=== PATIENT | male | born 1960 | race Caucasian/White ===

== ENCOUNTER 2016-09-03 11:20 | Inpatient (IN) | payer OTHER ==
[2016-09-03] MEDS ORDERED: ACETAMINOPHEN 325 MG TABLET (FP) PO ONE (11:29)
[2016-09-03] MEDS ORDERED: SODIUM CHLORIDE 0.9% 1000 ML INFUS.BAG IV PRN (11:50)
--- NOTE | 2016-09-03 11:50 | PDOC ---
History of Present Illness - General History Source: Patient Exam Limitations: No Limitations - History of Present Illness Initial Comments: 09/03/16 12:07 The patient is a 56-year-old male, with a significant past medical history of HTN and DM, who presents to the ER with right-sided flank pain and bladder pain s/p prostate surgery 2 days ago. Pt states that he has not been able to urinate much since the surgery. He does report having a fever and hematuria; in ER patients temperature was measured to be 103 and he was given a dose of Tylenol. Pt has been taking the antibiotics he was prescribed with no relief of his symptoms (does not recall the name). Urologist: Dr. Otf Westfall <Brook Chaudhry - Last Filed: 09/03/16 12:07> <Farrah De Jesus - Last Filed: 09/03/16 16:55> - General Chief Complaint: SIRS, Suspected/Possible Stated Complaint: FEVER Time Seen by Provider: 09/03/16 11:30 Past History <Brook Chaudhry - Last Filed: 09/03/16 12:07> - Past Medical History Diabetes: Yes HTN: Yes - Psycho/Social/Smoking Cessation Hx Suicidal Ideation: No Smoking History: Never smoked Hx Alcohol Use: No Drug/Substance Use Hx: No Substance Use Type: None <Farrah De Jesus - Last Filed: 09/03/16 16:55> - Past Medical History Allergies/Adverse Reactions: Allergies Allergy/AdvReac Type Severity Reaction Status Date / Time No Known Drug Allergies Allergy Verified 09/03/16 11:27 Home Medications: Ambulatory Orders Aspirin [ASA -] 81 mg PO DAILY 09/03/16 Glimepiride [Amaryl -] 4 mg PO DAILY@0700 09/03/16 Lisinopril [Prinivil] 20 mg PO DAILY 09/03/16 Metronidazole [Flagyl -] 250 mg PO BID 09/03/16 Sulfamethoxazole/Trimethoprim [Bactrim Ds Tablet] 1 each PO DAILY 09/03/16 Review of Systems - Review of Systems Comments:: 09/03/16 12:07 GENERAL/CONSTITUTIONAL: No chills. No weakness. +fever HEAD, EYES, EARS, NOSE AND THROAT: No change in vision. No ear pain or discharge. No sore throat. CARDIOVASCULAR: No chest pain or shortness of breath. RESPIRATORY: No cough, wheezing, or hemoptysis. SKIN: No rash GASTROINTESTINAL: No nausea, vomiting, diarrhea or constipation. GENITOURINARY: +hematuria, urinary retention, bladder pain MUSCULOSKELETAL: No joint swelling or pain. No neck pain. +right-sided flank pain NEUROLOGIC: No headache, vertigo, loss of consciousness, or change in strength/ sensation. ENDOCRINE: No increased thirst. No abnormal weight change. HEMATOLOGIC/LYMPHATIC: No anemia, easy bleeding, or history of blood clots. ALLERGIC/IMMUNOLOGIC: No hives or skin allergy. <Brook Chaudhry - Last Filed: 09/03/16 12:07> *Physical Exam - Vital Signs Last Vital Signs Temp Pulse Resp BP Pulse Ox 103.2 F H 147 H 20 151/80 96 09/03/16 11:21 09/03/16 11:21 09/03/16 11:21 09/03/16 11:21 09/03/16 11:21 - Physical Exam Comments: 09/03/16 12:10 GENERAL: Awake, alert, and fully oriented, in no acute distress HEAD: No signs of trauma ENT: Auricles normal inspection, hearing grossly normal, nares patent, oropharynx clear EYES: PERRLA, EOMI, sclera anicteric, conjunctiva clear without exudates. Moist mucosa. NECK: Normal ROM, supple, no lymphadenopathy, JVD, or masses LUNGS: Breath sounds equal, clear to auscultation bilaterally. No wheezes, and no crackles HEART: normal S1 and S2, no murmurs, rubs or gallops. +Regular Tachycardia ABDOMEN: Soft, normoactive bowel sounds. No guarding, no rebound. No masses. + Suprapubic tenderness and right CVA tenderness EXTREMITIES: Normal range of motion, no edema. No clubbing or cyanosis. No cords, erythema, or tenderness NEUROLOGICAL: Cranial nerves II through XII grossly intact. Normal speech, normal gait SKIN: Warm, Dry, normal turgor, no rashes or lesions noted <Brook Chaudhry - Last Filed: 09/03/16 12:07> - Vital Signs Last Vital Signs Temp Pulse Resp BP Pulse Ox 103.2 F H 147 H 20 151/80 96 09/03/16 11:21 09/03/16 11:21 09/03/16 11:21 09/03/16 11:21 09/03/16 11:21 <Farrah De Jesus - Last Filed: 09/03/16 16:55> ED Treatment Course - Medications Given in the ED: ED Medications Discontinued Medications Generic Name Dose Route Start Last Admin Trade Name Freq PRN Reason Stop Dose Admin Acetaminophen 650 mg 09/03/16 11:29 09/03/16 11:29 Tylenol - PO 09/03/16 11:30 650 mg NOW ONE Administration <Brook Chaudhry - Last Filed: 09/03/16 12:07> - LABORATORY CBC & Chemistry Diagram: 09/03/16 11:54 09/03/16 11:54 - Medications Given in the ED: ED Medications Discontinued Medications Generic Name Dose Route Start Last Admin Trade Name Freq PRN Reason Stop Dose Admin Acetaminophen 650 mg 09/03/16 11:29 09/03/16 11:29 Tylenol - PO 09/03/16 11:30 650 mg NOW ONE Administration <Farrah De Jesus - Last Filed: 09/03/16 16:55> Medical Decision Making - Medical Decision Making 09/03/16 11:47 56 yo M with /o recent prostate surgery for BPH, 2 days ago, here today with c/ o inability to urinate, and fever. c/o flank pain and bladder pain. right sided. does have hematuria. did have fever and chills. no n/v pain moderate. urologist dr. Westfall. on exam awake alert, lungs clear. heart reg tachycardia. abd soft right cva ttp , suprapubic ttp. . skin warm and dry. differential: retention, pyelo, bacteremia. plan iv hydration pat culture lactate. will cover with ceftriaxone. d/w dr. westfall. admit. 09/03/16 16:54 rpt lactate, now 1.5 after 2 L NS. antiobtiocs given,. admitted to hospitalist. urology will see in hospital. <Farrah De Jesus - Last Filed: 09/03/16 16:55> *DC/Admit/Observation/Transfer - Attestations Scribe Attestion: 09/03/16 12:11 Documentation prepared by Brook Chaudhry, acting as medical records supervisor for Farrah De Jesus MD. <Brook Chaudhry - Last Filed: 09/03/16 12:07> - Discharge Dispostion Admit: Yes <Farrah De Jesus - Last Filed: 09/03/16 16:55> Diagnosis at time of Disposition: Sepsis - Referrals Referrals: Shelli Ortiz MD [Primary Care Provider] -
[2016-09-03 12:04] LABS: VENOUS PH 7.35 (7.32-7.42)
[2016-09-03 12:05] LABS: VENOUS BLOOD GAS HCO3 25.1 meq/L (19-25)
[2016-09-03] MEDS ORDERED: GENTAMICIN 80 MG PREMIXED IVPB 100 ML IVPB ONE (12:23)
[2016-09-03] MEDS ORDERED: CEFTRIAXONE 1 GM in DEXTROSE 5%-WATER - 50 ML IVPB ONE (12:23)
[2016-09-03 12:50] LABS: BASOPHIL 0.2 % (0-2.0); MCH 30.7 pg (25.7-33.7); MCHC 34.3 g/dl (32.0-35.9); MEAN CELL VOLUME 89.7 fl (80-96); MEAN PLT VOLUME 8.7 fl (7.5-11.1); NEUTROPHILS 86.7 % (42.8-82.8); PLATELET COUNT 136 K/MM3 (134-434); RDW 12.8 % (11.9-15.9); WHITE BLOOD COUNT 9.3 K/mm3 (4.0-10.0)
[2016-09-03] MEDS ORDERED: CEFTRIAXONE 50 ML ONE (12:52)
[2016-09-03 12:53] LABS: URINE APPEARANCE SLCLOUDY; URINE BILIRUBIN NEGATIVE (NEGATIVE); URINE COLOR YELLOW; URINE GLUCOSE (UA) 3+ (NEGATIVE); URINE KETONE NEGATIVE (NEGATIVE); URINE LEUK ESTERASE NEGATIVE (NEGATIVE); URINE NITRITE NEGATIVE (NEGATIVE); URINE UROBILINOGEN NEGATIVE E.U./dl (0.2-1.0)
[2016-09-03 13:01] LABS: URINE BLOOD 3+ (NEGATIVE); URINE PROTEIN 1+ (NEGATIVE)
[2016-09-03 13:03] LABS: INR 1.35 (0.82-1.09); PROTHROMBIN TIME (PATIENT) 14.9 SEC (9.98-11.88)
[2016-09-03 13:05] LABS: ACTIVATED PTT 26.8 SECONDS (26.9-34.4)
[2016-09-03 13:10] LABS: ALBUMIN 3.3 g/dl (3.4-5.0); ANION GAP 12 (8-16); BILIRUBIN,TOTAL 0.5 mg/dL (0.2-1.0); CALCIUM 8.7 mg/dL (8.5-10.1); CO2 25 mmol/L (21-32); CREATININE 1.6 mg/dL (0.7-1.3); GLUCOSE,RANDOM 266 mg/dL (74-106); SGOT/AST 20 U/L (15-37); SGPT/ALT 36 U/L (12-78); TOT PROT 6.8 g/dl (6.4-8.2)
[2016-09-03 13:12] LABS: ALK PHOS 81 U/L (45-117); TROPONIN I < 0.02 ng/ml (0.00-0.05)
[2016-09-03] MEDS ORDERED: SODIUM CHLORIDE 1,000 ML IV STA (16:23)
--- NOTE | 2016-09-03 16:23 | HP ---
CHIEF COMPLAINT: fever, chills and vague lower back pain x2 days PCP: Felix ALVARADO: Otf Westfall HISTORY OF PRESENT ILLNESS: This is a 56 yo man with PMH of HTN, NIDDM and BPH who presents today for fever, chills and lower back pain s/p prostate biopsy. He denies nausea, vomiting, change in appetite or urinary difficulties. He reports taking abx as prescribed by Andrea for post-procedure ppx. ER course was notable for: (1) Fever Tmax 103.2 (2) Lactic acid 4.8->1.5 after 2 liters NS (3) bilateral flank pain Recent Travel: denies PAST MEDICAL HISTORY: BPH, NIDDM, HTN PAST SURGICAL HISTORY: prostate biopsy 09/01/16 Social History: Smoking: denies Alcohol: occasional Drugs: denies Employed in high school overnight Family History: noncontributory Allergies No Known Drug Allergies Allergy (Verified 09/03/16 11:27) HOME MEDICATIONS: Home Medications 3 Medication Instructions Recorded Aspirin [ASA -] 81 mg PO DAILY 09/03/16 Glimepiride [Amaryl -] 4 mg PO DAILY@0700 09/03/16 Lisinopril [Prinivil] 20 mg PO DAILY 09/03/16 Metronidazole [Flagyl -] 250 mg PO BID 09/03/16 Sulfamethoxazole/Trimethoprim 1 each PO DAILY 09/03/16 [Bactrim Ds Tablet] REVIEW OF SYSTEMS CONSTITUTIONAL: fever, chills, diaphoresis Absent: generalized weakness, malaise, loss of appetite, weight change HEENT: Absent: rhinorrhea, nasal congestion, throat pain, throat swelling, difficulty swallowing, mouth swelling, ear pain, eye pain, visual changes CARDIOVASCULAR: Absent: chest pain, syncope, palpitations, irregular heart rate, lightheadedness , peripheral edema RESPIRATORY: Absent: cough, shortness of breath, dyspnea with exertion, orthopnea, wheezing, stridor, hemoptysis GASTROINTESTINAL: Absent: abdominal pain, abdominal distension, nausea, vomiting, diarrhea, constipation, melena, hematochezia GENITOURINARY: Absent: dysuria, frequency, urgency, hesitancy, hematuria, flank pain, genital pain MUSCULOSKELETAL: Absent: myalgia, arthralgia, joint swelling, back pain, neck pain SKIN: Absent: rash, itching, pallor HEMATOLOGIC/IMMUNOLOGIC: Absent: easy bleeding, easy bruising, lymphadenopathy, frequent infections ENDOCRINE: Absent: unexplained weight gain, unexplained weight loss, heat intolerance, cold intolerance NEUROLOGIC: Absent: headache, focal weakness or paresthesias, dizziness, unsteady gait, seizure, mental status changes, bladder or bowel incontinence PSYCHIATRIC: Absent: anxiety, depression, suicidal or homicidal ideation, hallucinations. PHYSICAL EXAMINATION Vital Signs - 24 hr 3 09/03/16 09/03/16 09/03/16 11:21 12:12 12:48 Temperature 103.2 F H Pulse Rate 147 H 110 H Pulse Rate [ 110 H Left] Respiratory 20 16 Rate Blood Pressure 151/80 Blood Pressure 100/66 [Arm] O2 Sat by Pulse 96 100 100 Oximetry (%) 3 09/03/16 09/03/16 09/03/16 12:49 13:51 13:52 Temperature 102.8 F H Pulse Rate 112 H Pulse Rate [ 95 H Left] Respiratory 14 Rate Blood Pressure Blood Pressure [Arm] O2 Sat by Pulse 100 100 Oximetry (%) 3 09/03/16 16:09 Temperature Pulse Rate Pulse Rate [ 86 Left] Respiratory 16 Rate Blood Pressure Blood Pressure 98/62 [Arm] O2 Sat by Pulse 98 Oximetry (%) GENERAL: Awake, alert, and fully oriented, in no acute distress. Drenched in sweat. Jordanian speaking only. HEAD: Normal with no signs of trauma. EYES: Pupils equal, round and reactive to light, extraocular movements intact, sclera anicteric, conjunctiva clear. EARS, NOSE, THROAT: Ears normal, nares patent, oropharynx clear without exudates. Moist mucous membranes. NECK: Normal range of motion, supple without lymphadenopathy, JVD, or masses. LUNGS: Breath sounds equal, clear to auscultation bilaterally. No wheezes, and no crackles. No accessory muscle use. HEART: Tachycardia with regular rate and rhythm, normal S1 and S2 without murmur , rub or gallop. ABDOMEN: Soft, nontender, not distended, normoactive bowel sounds, no guarding, no rebound, no masses. No hepatomegaly or splenomegaly. MUSCULOSKELETAL: Normal range of motion at all joints. No bony deformities or tenderness. No CVA tenderness. UPPER EXTREMITIES: 2+ pulses, warm, well-perfused. No cyanosis. No clubbing. No peripheral edema. LOWER EXTREMITIES: 2+ pulses, warm, well-perfused. No calf tenderness. No peripheral edema. NEUROLOGICAL: Cranial nerves II-XII intact. Normal speech. Normal gait. PSYCHIATRIC: Cooperative. Good eye contact. Appropriate mood and affect. SKIN: Warm, dry, normal turgor, no rashes or lesions noted, normal capillary refill. Laboratory Results - last 24 hr 3 09/03/16 09/03/16 09/03/16 11:54 11:54 11:54 WBC 9.3 D RBC 4.33 Hgb 13.3 Hct 38.9 MCV 89.7 MCHC 34.3 RDW 12.8 Plt Count 136 D MPV 8.7 Neutrophils % 86.7 H Lymphocytes % 11.1 D Monocytes % 2.0 L Eosinophils % 0.0 D Basophils % 0.2 INR 1.35 H PTT (Actin FS) 26.8 L VBG pH 7.35 POC VBG pCO2 46.2 POC VBG pO2 24.2 L Mixed VBG HCO3 25.1 H Sodium Potassium Chloride Carbon Dioxide Anion Gap BUN Creatinine Creat Clearance w eGFR Random Glucose Lactic Acid Calcium Total Bilirubin AST ALT Alkaline Phosphatase Creatine Kinase Troponin I Total Protein Albumin Urine Color Urine Appearance Urine pH Urine Protein Urine Glucose (UA) Urine Ketones Urine Blood Urine Nitrite Urine Bilirubin Urine Urobilinogen Ur Leukocyte Esterase Blood Type Antibody Screen 3 09/03/16 09/03/16 09/03/16 11:54 11:54 11:54 WBC RBC Hgb Hct MCV MCHC RDW Plt Count MPV Neutrophils % Lymphocytes % Monocytes % Eosinophils % Basophils % INR PTT (Actin FS) VBG pH POC VBG pCO2 POC VBG pO2 Mixed VBG HCO3 Sodium 135 L Potassium 4.6 Chloride 98 Carbon Dioxide 25 Anion Gap 12 BUN 20 H Creatinine 1.6 H D Creat Clearance w eGFR 44.62 Random Glucose 266 H Lactic Acid 4.8 H* Calcium 8.7 Total Bilirubin 0.5 D AST 20 ALT 36 D Alkaline Phosphatase 81 Creatine Kinase 73 Troponin I < 0.02 Total Protein 6.8 Albumin 3.3 L Urine Color Urine Appearance Urine pH Urine Protein Urine Glucose (UA) Urine Ketones Urine Blood Urine Nitrite Urine Bilirubin Urine Urobilinogen Ur Leukocyte Esterase Blood Type B POSITIVE Antibody Screen Negative 3 09/03/16 09/03/16 12:31 15:13 WBC RBC Hgb Hct MCV MCHC RDW Plt Count MPV Neutrophils % Lymphocytes % Monocytes % Eosinophils % Basophils % INR PTT (Actin FS) VBG pH POC VBG pCO2 POC VBG pO2 Mixed VBG HCO3 Sodium Potassium Chloride Carbon Dioxide Anion Gap BUN Creatinine Creat Clearance w eGFR Random Glucose Lactic Acid 1.5 Calcium Total Bilirubin AST ALT Alkaline Phosphatase Creatine Kinase Troponin I Total Protein Albumin Urine Color Yellow Urine Appearance Slcloudy Urine pH 5.0 Urine Protein 1+ H Urine Glucose (UA) 3+ H Urine Ketones Negative Urine Blood 3+ H Urine Nitrite Negative Urine Bilirubin Negative Urine Urobilinogen Negative Ur Leukocyte Esterase Negative Blood Type Antibody Screen CXR as read by MD Carmichael: No acute disease. ASSESSMENT/PLAN: A: This is a 56 yo man with PMH of HTN, NIDDM and BPH who presents today for fever , chills and lower back pain s/p prostate biopsy. He denies nausea, vomiting, change in appetite or urinary difficulties. He reports taking abx as prescribed by Andrea for post-procedure ppx. Meets SIRS with temp and HR. Lactate cleared from 4.8 to 1.5 s/p 2L NS. Pat with cloudy yellow urine and approximately 100cc in bag. Given recent prostate biopsy, urinary source is most likely. P: 1. Sepsis - urine and blood cx - trend fever - trend WBC - empiric treatment with meropenem - case d/w ID Bodconnie- recommends meropenem - strict I&O - NS@125 2. Pyelonephritis - urine cx - rocephin - ID consult 3. HTN - hold MARY JANE 2/2 YOGESH - BP controlled - can start CCB if BP goes up 4. DM - FS QACHS - ISS 5. BPH - pat 6. F/E/N - NS@125 - diabetic diet 7. PPX - Lovenox - OOB as tolerated Dispo: This patient requires inpatient admission to manage his acute medical condition. Code Status: FULL CODE Visit type - Emergency Visit Emergency Visit: Yes ED Registration Date: 09/03/16 Care time: The patient presented to the Emergency Department on the above date and was hospitalized for further evaluation of their emergent condition. - New Patient This patient is new to me today: Yes Date on this admission: 09/03/16 - Critical Care Critical Care patient: No
[2016-09-03] MEDS: INSULIN SLIDING SCALE (NOVOLOG) 1 VIAL SQ SCH ×2 (18:24→22:00)
[2016-09-03] MEDS ORDERED: MEROPENEM 1 GM in DEXTROSE 5%-WATER - 100 ML IVPB ONE (18:27)
[2016-09-03] MEDS ORDERED: SODIUM CHLORIDE 1,000 ML IV SCH (18:45)
[2016-09-03 20:52] VITALS: BMI 24.3
[2016-09-03] MEDS: SODIUM CHLORIDE 1,000 ML IV SCH (21:51)
[2016-09-03] MEDS: ACETAMINOPHEN 325 MG TABLET (FP) PO PRN (21:52)
[2016-09-03 22:03] LABS: MCH 29.6 pg (25.7-33.7); MCHC 32.8 g/dl (32.0-35.9); MEAN CELL VOLUME 90.3 fl (80-96); MEAN PLT VOLUME 8.3 fl (7.5-11.1); PLATELET COUNT 135 K/MM3 (134-434); RDW 12.7 % (11.9-15.9); WHITE BLOOD COUNT 10.7 K/mm3 (4.0-10.0)
[2016-09-03] MEDS: MEROPENEM 1 GM in DEXTROSE 5%-WATER - 100 ML IVPB SCH (22:43)
[2016-09-03] MEDS ORDERED: SODIUM CHLORIDE 500 ML IV STA (23:21)
[2016-09-04] MEDS: SODIUM CHLORIDE 1,000 ML IV SCH ×3 (01:04→21:04)
[2016-09-04] MEDS: MEROPENEM 1 GM in DEXTROSE 5%-WATER - 100 ML IVPB SCH ×3 (01:05→18:00)
[2016-09-04] MEDS: ACETAMINOPHEN 325 MG TABLET (FP) PO PRN ×3 (02:40→20:02)
[2016-09-04] MEDS: INSULIN SLIDING SCALE (NOVOLOG) 1 VIAL SQ SCH ×4 (06:02→21:04)
[2016-09-04 07:13] LABS: BASOPHIL 0.3 % (0-2.0); MCH 30.7 pg (25.7-33.7); MCHC 34.5 g/dl (32.0-35.9); MEAN PLT VOLUME 8.6 fl (7.5-11.1); NEUTROPHILS 84.2 % (42.8-82.8); PLATELET COUNT 112 K/MM3 (134-434); RDW 12.6 % (11.9-15.9)
[2016-09-04 07:50] LABS: COCKROFT - GAULT 68.59; CREATININE 1.1 mg/dL (0.7-1.3)
[2016-09-04] MEDS: ASPIRIN 81 MG CHEWABLE TABLETS PO SCH (09:58)
[2016-09-04] MEDS: ENOXAPARIN NA (PORCINE) 40 MG/0.4 ML DISP.SYRIN SQ SCH (09:58)
--- NOTE | 2016-09-04 10:35 | EKG ---
Test Reason : Blood Pressure : / mmHG Vent. Rate : 117 BPM Atrial Rate : 117 BPM P-R Int : 146 ms QRS Dur : 094 ms QT Int : 290 ms P-R-T Axes : 052 058 031 degrees QTc Int : 404 ms SINUS TACHYCARDIA NONSPECIFIC T WAVE ABNORMALITY ABNORMAL ECG WHEN COMPARED WITH ECG OF 26-OCT-2015 21:06, NO SIGNIFICANT CHANGE WAS FOUND Confirmed by SHAHLA QUIGLEY MD ([id number]) on 09/04/2016 10:34:49 AM Referred By: Confirmed By:SHAHLA QUIGLEY MD
--- NOTE | 2016-09-04 13:20 | PN ---
Physical Exam: SUBJECTIVE: Patient seen and examined at bedside. Friend and present. Last episode of sweats was at 3:00am. Feeling much better, tolerating food. OBJECTIVE: Vital Signs Period Temp Pulse Resp BP Sys/[place]ayson Pulse Ox Last 24 Hr 98.7 F-102.4 F 81-115 17-21 94-146/60-80 93-100 GENERAL: The patient is awake, alert, and fully oriented, in no acute distress. HEAD: Normal with no signs of trauma. EYES: PERRL, extraocular movements intact, sclera anicteric, conjunctiva clear. No ptosis. ENT: moist mucous membranes. NECK: Trachea midline, full range of motion, supple. LUNGS: Breath sounds equal, clear to auscultation bilaterally, no wheezes, no crackles, no accessory muscle use. HEART: Regular rate and rhythm, S1, S2 without murmur, rub or gallop. ABDOMEN: Soft, nontender, nondistended, normoactive bowel sounds, no guarding, no rebound, no hepatosplenomegaly, no masses. : Pat draining light yellow urine. EXTREMITIES: 2+ pulses, warm, well-perfused, no edema. NEUROLOGICAL: Cranial nerves II through XII grossly intact. Normal speech, gait not observed. Laboratory Results - last 24 hr 09/03/16 09/03/16 09/03/16 17:44 21:30 21:30 WBC 10.7 H RBC 4.36 Hgb 12.9 Hct 39.4 MCV 90.3 MCHC 32.8 RDW 12.7 Plt Count 135 MPV 8.3 Neutrophils % Lymphocytes % Monocytes % Eosinophils % Basophils % Sodium Potassium Chloride Carbon Dioxide Anion Gap BUN Creatinine POC Glucometer [phone] Random Glucose Lactic Acid 1.8 Calcium 09/03/16 09/04/16 09/04/16 22:00 05:35 05:35 WBC 10.0 RBC 3.89 L Hgb 11.9 Hct 34.6 L MCV 89.0 MCHC 34.5 RDW 12.6 Plt Count 112 L MPV 8.6 Neutrophils % 84.2 H Lymphocytes % 7.3 L D Monocytes % 8.2 D Eosinophils % 0.0 Basophils % 0.3 Sodium 139 Potassium 4.5 Chloride 106 Carbon Dioxide 23 Anion Gap 10 BUN 14 D Creatinine 1.1 D POC Glucometer 91 Random Glucose 80 D Lactic Acid Calcium 8.0 L 09/04/16 09/04/16 05:58 12:34 WBC RBC Hgb Hct MCV MCHC RDW Plt Count MPV Neutrophils % Lymphocytes % Monocytes % Eosinophils % Basophils % Sodium Potassium Chloride Carbon Dioxide Anion Gap BUN Creatinine POC Glucometer 82 116 Random Glucose Lactic Acid Calcium Active Medications Generic Name Dose Route Start Last Admin Trade Name Freq PRN Reason Stop Dose Admin Acetaminophen 650 mg 09/03/16 21:19 09/04/16 02:40 Tylenol - PO 650 mg Q4H PRN Administration FEVER OR PAIN Aspirin 81 mg 09/04/16 10:00 09/04/16 09:58 Asa - PO 81 mg DAILY SAAD Administration Enoxaparin Sodium 40 mg 09/04/16 10:00 09/04/16 09:58 Lovenox - SQ 40 mg DAILY SAAD Administration Sodium Chloride 1,000 mls @ 150 mls/hr 09/03/16 21:31 09/04/16 11:34 Normal Saline - IV 150 mls/hr ASDIR ASAD Administration Meropenem 1 gm/ Dextrose 100 mls @ 200 mls/hr 09/03/16 22:15 09/04/16 09:58 IVPB 200 mls/hr Q8H-IV SAAD Administration Insulin Aspart 1 vial 09/03/16 16:30 09/04/16 12:34 Novolog Vial Sliding Scale - SQ Not Given ACHS SAAD Protocol ASSESSMENT/PLAN 56 year-old male with a PMH of HTN, NIDDM, and BPH, admitted for severe sepsis secondary to acute bacterial prostatitis s/p prostate biopsy x 2 days. Sepsis secondary to acute bacterial prostatitis Gram negative bacteremia --Febrile to 103.2, tachycardic to 147, prostatitis is suspected source --was fluid bolused 2.5L --presently hemodynamically stable --strict I&Os --continue Meropenem (day #2) Hypertension --hold home lisinopril due to sepsis NIDDM --Novolog sliding scale BPH --leave pat in place F/E/N Fluids: NS @ 150mL/hr Electrolytes: replete as indicated Nutrition: diabetic DVT prophylaxis: loveonox Dispo: continues to require inpatient care. Full Code. Visit type - Emergency Visit Emergency Visit: Yes ED Registration Date: 09/03/16 Care time: The patient presented to the Emergency Department on the above date and was hospitalized for further evaluation of their emergent condition. - New Patient This patient is new to me today: Yes Date on this admission: 09/04/16 - Critical Care Critical Care patient: No
--- NOTE | 2016-09-04 16:32 | CONSULT ---
Consult Consult Specialty:: infectious disease Referred by:: Reason for Consultation:: prostatitis,fever - History of Present Illness Chief Complaint: fever weakness,hematuria History of Present Illness: 56-year-old male, with a significant past medical history of HTN and DM, who presents to the ER with right-sided flank pain and bladder pain s/p prostate surgery 2 days ago. Pt states that he has not been able to urinate much since the surgery. He does report having a fever and hematuria; in ER patients temperature was measured to be 103 and he was given a dose of Tylenol. patient mentions that he felt very sick and nauseous - History Source History Provided By: Patient, Medical Record Limitations to Obtaining History: Language Barrier - Alcohol/Substance Use Hx Alcohol Use: No - Smoking History Smoking history: Never smoked Aproximately how many cigarettes per day: 0 Home Medications - Allergies Allergies/Adverse Reactions: Allergies Allergy/AdvReac Type Severity Reaction Status Date / Time No Known Drug Allergies Allergy Verified 09/03/16 11:27 - Home Medications Home Medications: Ambulatory Orders Aspirin [ASA -] 81 mg PO DAILY 09/03/16 Glimepiride [Amaryl -] 4 mg PO DAILY@0700 09/03/16 Lisinopril [Prinivil] 20 mg PO DAILY 09/03/16 Metronidazole [Flagyl -] 250 mg PO BID 09/03/16 Sulfamethoxazole/Trimethoprim [Bactrim Ds Tablet] 1 each PO DAILY 09/03/16 Review of Systems - Review of Systems Constitutional: reports: Chills, Fever, Other (sweats) Eyes: reports: No Symptoms HENT: reports: No Symptoms Neck: reports: No Symptoms Cardiovascular: reports: No Symptoms Respiratory: reports: No Symptoms Gastrointestinal: reports: No Symptoms Genitourinary: reports: Dysuria, Hematuria, Other (inability to pass urine) Musculoskeletal: reports: No Symptoms Integumentary: reports: No Symptoms Neurological: reports: No Symptoms Endocrine: reports: No Symptoms Hematology/Lymphatic: reports: No Symptoms Psychiatric: reports: No Symptoms Physical Exam Vital Signs: Vital Signs Temperature 99.9 F H 09/04/16 14:00 Pulse Rate 88 09/04/16 14:00 Respiratory Rate 20 09/04/16 14:00 Blood Pressure 109/8 09/04/16 14:00 O2 Sat by Pulse Oximetry (%) 95 09/04/16 10:00 Constitutional: Yes: Calm, Mild Distress HENT: Yes: Atraumatic Neck: Yes: Supple Cardiovascular: Yes: Regular Rate and Rhythm Respiratory: Yes: Regular Gastrointestinal: Yes: Normal Bowel Sounds, Soft Renal/: Yes: CVA Tenderness - Right, [place] Present, Hematuria Musculoskeletal: Yes: WNL Extremities: Yes: WNL Neurological: Yes: Alert, Oriented Psychiatric: Yes: Alert, Oriented Labs: CBC, BMP 09/04/16 05:35 09/04/16 05:35 Imaging - Results Chest X-ray: Report Reviewed, Image Reviewed Assessment/Plan fever hematuria r/o pyelo sepsis patient post prostatic biopsy developing fever hematuria and sepsis also ahving rt flank pain plan continue meropenam hydration get a ct scan of abd and pelvis to see if the kidney is affected rest as per urology monitor hematuria
[2016-09-04] MEDS ORDERED: PT OWN MED DRAWER 7, Y5N ONE ×2 (17:56→17:58)
[2016-09-04] MEDS ORDERED: IBUPROFEN 400 MG TABLET (FP) PO ONE (21:30)
[2016-09-05 00:13] LABS: BASOPHIL 0.3 % (0-2.0); EOSINOPHIL 0.1 % (0-4.5); MCH 29.7 pg (25.7-33.7); MEAN CELL VOLUME 89.9 fl (80-96); MEAN PLT VOLUME 8.8 fl (7.5-11.1); NEUTROPHILS 83.9 % (42.8-82.8); PLATELET COUNT 119 K/MM3 (134-434); RDW 12.6 % (11.9-15.9); WHITE BLOOD COUNT 6.4 K/mm3 (4.0-10.0)
[2016-09-05 00:38] LABS: ALBUMIN 2.6 g/dl (3.4-5.0); ALK PHOS 69 U/L (45-117); ANION GAP 9 (8-16); BILIRUBIN,TOTAL 0.5 mg/dL (0.2-1.0); CO2 25 mmol/L (21-32); COCKROFT - GAULT 83.83; CREATININE 0.9 mg/dL (0.7-1.3); GLUCOSE,RANDOM 164 mg/dL (74-106); MAGNESIUM 1.8 mg/dL (1.8-2.4); SGOT/AST 41 U/L (15-37); SGPT/ALT 51 U/L (12-78); TOT PROT 5.6 g/dl (6.4-8.2)
[2016-09-05] MEDS ORDERED: PT OWN MED DRAWER 7, Y5N ONE ×2 (01:45→17:15)
[2016-09-05] MEDS: MEROPENEM 1 GM in DEXTROSE 5%-WATER - 100 ML IVPB SCH ×3 (01:54→17:29)
[2016-09-05] MEDS: INSULIN SLIDING SCALE (NOVOLOG) 1 VIAL SQ SCH ×4 (06:30→21:15)
[2016-09-05] MEDS ORDERED: INSULIN (NOVOLOG) ASPART 100 UNITS/ML 10ML VIAL ONE ×2 (06:34→17:58)
[2016-09-05] MEDS: ACETAMINOPHEN 325 MG TABLET (FP) PO PRN ×2 (08:43→17:32)
[2016-09-05] MEDS: ASPIRIN 81 MG CHEWABLE TABLETS PO SCH (09:38)
[2016-09-05] MEDS: ENOXAPARIN NA (PORCINE) 40 MG/0.4 ML DISP.SYRIN SQ SCH (09:38)
[2016-09-05] MEDS: POLYETHYLENE GLYCOL 3350 119 GM BTL PO SCH ×2 (09:39→21:16)
[2016-09-05] MEDS: SODIUM CHLORIDE 1,000 ML IV SCH ×3 (09:40→21:18)
--- NOTE | 2016-09-05 13:36 | PN ---
Physical Exam: SUBJECTIVE: Patient seen and examined sitting on edge of bed. present. States he feels sweaty. OBJECTIVE: Vital Signs Period Temp Pulse Resp BP Sys/Grayson Pulse Ox Last 24 Hr 98.6 F-101.6 F 75-109 20-20 109-145/8-84 95-96 GENERAL: The patient is awake, alert, and fully oriented, in no acute distress. HEAD: Normal with no signs of trauma. EYES: PERRL, extraocular movements intact, sclera anicteric, conjunctiva clear. No ptosis. ENT: moist mucous membranes. NECK: Trachea midline, full range of motion, supple. LUNGS: Breath sounds equal, clear to auscultation bilaterally, no wheezes, no crackles, no accessory muscle use. HEART: Regular rate and rhythm, S1, S2 without murmur, rub or gallop. ABDOMEN: Soft, nontender, nondistended, normoactive bowel sounds, no guarding, no rebound, no hepatosplenomegaly, no masses. : Pat draining light yellow urine. EXTREMITIES: 2+ pulses, warm, well-perfused, no edema. NEUROLOGICAL: Cranial nerves II through XII grossly intact. Normal speech, gait not observed. SKIN: cool, clammy Laboratory Results - last 24 hr 09/04/16 09/04/16 09/04/16 17:26 20:36 23:50 WBC 6.4 D RBC 4.15 Hgb 12.3 Hct 37.3 MCV 89.9 MCHC 33.0 RDW 12.6 Plt Count 119 L MPV 8.8 Neutrophils % 83.9 H Lymphocytes % 7.5 L Monocytes % 8.2 Eosinophils % 0.1 D Basophils % 0.3 Sodium Potassium Chloride Carbon Dioxide Anion Gap BUN Creatinine Creat Clearance w eGFR POC Glucometer 150 131 Random Glucose Calcium Magnesium Total Bilirubin AST ALT Alkaline Phosphatase Total Protein Albumin 09/04/16 09/05/16 09/05/16 23:50 05:46 11:44 WBC RBC Hgb Hct MCV MCHC RDW Plt Count MPV Neutrophils % Lymphocytes % Monocytes % Eosinophils % Basophils % Sodium 137 Potassium 4.4 Chloride 103 Carbon Dioxide 25 Anion Gap 9 BUN 11 D Creatinine 0.9 Creat Clearance w eGFR > 60 POC Glucometer 205 217 Random Glucose 164 H D Calcium 8.0 L Magnesium 1.8 Total Bilirubin 0.5 AST 41 H D ALT 51 D Alkaline Phosphatase 69 Total Protein 5.6 L Albumin 2.6 L D Active Medications Generic Name Dose Route Start Last Admin Trade Name Freq PRN Reason Stop Dose Admin Acetaminophen 650 mg 09/03/16 21:19 09/05/16 08:43 Tylenol - PO 650 mg Q4H PRN Administration FEVER OR PAIN Aspirin 81 mg 09/04/16 10:00 09/05/16 09:38 Asa - PO 81 mg DAILY SAAD Administration Docusate Sodium 300 mg 09/05/16 22:00 Colace - PO HS SAAD Enoxaparin Sodium 40 mg 09/04/16 10:00 09/05/16 09:38 Lovenox - SQ 40 mg DAILY SAAD Administration Sodium Chloride 1,000 mls @ 150 mls/hr 09/03/16 21:31 09/05/16 09:40 Normal Saline - IV 150 mls/hr ASDIR SAAD Administration Meropenem 1 gm/ Dextrose 100 mls @ 200 mls/hr 09/03/16 22:15 09/05/16 12:07 IVPB 200 mls/hr Q8H-IV SAAD Administration Insulin Aspart 1 vial 09/03/16 16:30 09/05/16 12:08 Novolog Vial Sliding Scale - SQ 4 unit ACHS SAAD Administration Protocol Polyethylene Glycol 17 gm 09/05/16 10:00 09/05/16 09:39 Miralax (For Daily Use) - PO 17 grams BID SAAD Administration ASSESSMENT/PLAN 56 year-old male with a PMH of HTN, NIDDM, and BPH, admitted for severe sepsis secondary to acute bacterial prostatitis s/p prostate biopsy x 2 days. Sepsis secondary to acute bacterial prostatitis E.coli bacteremia --Tm 101.6 and diaphoretic; hemodynamically stable --continue IV fluids --strict I&Os --blood cultures grew E.coli, sensitive to meropenem (day #3) Hypertension --hold home lisinopril due to sepsis NIDDM --Novolog sliding scale BPH --leave pat in place F/E/N Fluids: NS @ 100mL/hr Electrolytes: replete as indicated Nutrition: diabetic DVT prophylaxis: loveonox Dispo: continues to require inpatient care. Full Code. Visit type - Emergency Visit Emergency Visit: Yes ED Registration Date: 09/03/16 Care time: The patient presented to the Emergency Department on the above date and was hospitalized for further evaluation of their emergent condition. - New Patient This patient is new to me today: No - Critical Care Critical Care patient: No
[2016-09-05] MEDS ORDERED: DOCUSATE SODIUM 100 MG CAPSULE (FP) PO SCH (22:00)
[2016-09-06] MEDS ORDERED: PT OWN MED DRAWER 7, Y5N ONE ×3 (01:47→16:55)
[2016-09-06] MEDS: MEROPENEM 1 GM in DEXTROSE 5%-WATER - 100 ML IVPB SCH ×3 (01:51→17:15)
[2016-09-06] MEDS: SODIUM CHLORIDE 1,000 ML IV SCH (01:53)
[2016-09-06] MEDS: INSULIN SLIDING SCALE (NOVOLOG) 1 VIAL SQ SCH ×4 (06:06→22:43)
[2016-09-06] MEDS: ASPIRIN 81 MG CHEWABLE TABLETS PO SCH (09:33)
[2016-09-06] MEDS: ENOXAPARIN NA (PORCINE) 40 MG/0.4 ML DISP.SYRIN SQ SCH (09:34)
[2016-09-06] MEDS: POLYETHYLENE GLYCOL 3350 119 GM BTL PO SCH ×2 (09:35→22:37)
[2016-09-06 09:39] LABS: BASOPHIL 0.6 % (0-2.0); EOSINOPHIL 0.4 % (0-4.5); MCH 30.2 pg (25.7-33.7); MCHC 33.9 g/dl (32.0-35.9); MEAN CELL VOLUME 89.1 fl (80-96); MEAN PLT VOLUME 7.9 fl (7.5-11.1); NEUTROPHILS 64.7 % (42.8-82.8); PLATELET COUNT 146 K/MM3 (134-434); RDW 12.8 % (11.9-15.9); WHITE BLOOD COUNT 5.2 K/mm3 (4.0-10.0)
[2016-09-06 10:01] LABS: ALBUMIN 2.5 g/dl (3.4-5.0); ALK PHOS 59 U/L (45-117); ANION GAP 8 (8-16); BILIRUBIN,TOTAL 0.4 mg/dL (0.2-1.0); CO2 26 mmol/L (21-32); COCKROFT - GAULT 83.83; CREATININE 0.9 mg/dL (0.7-1.3); GLUCOSE,RANDOM 160 mg/dL (74-106); MAGNESIUM 1.8 mg/dL (1.8-2.4); SGOT/AST 28 U/L (15-37); SGPT/ALT 42 U/L (12-78); TOT PROT 5.5 g/dl (6.4-8.2)
--- NOTE | 2016-09-06 15:14 | PN ---
Physical Exam: SUBJECTIVE: Patient seen and examined OBJECTIVE: Vital Signs Period Temp Pulse Resp BP Sys/Grayson Pulse Ox Last 24 Hr 98.5 F-100.5 F 69-90 16-20 112-134/66-85 94-97 GENERAL: The patient is awake, alert, and fully oriented, in no acute distress. HEAD: Normal with no signs of trauma. EYES: PERRL, extraocular movements intact, sclera anicteric, conjunctiva clear. No ptosis. ENT: moist mucous membranes. NECK: Trachea midline, full range of motion, supple. LUNGS: Breath sounds equal, clear to auscultation bilaterally, no wheezes, no crackles, no accessory muscle use. HEART: Regular rate and rhythm, S1, S2 without murmur, rub or gallop. ABDOMEN: Soft, nontender, nondistended, normoactive bowel sounds, no guarding, no rebound, no hepatosplenomegaly, no masses. : Pat draining light yellow urine. EXTREMITIES: 2+ pulses, warm, well-perfused, no edema. NEUROLOGICAL: Cranial nerves II through XII grossly intact. Normal speech, gait not observed. Laboratory Results - last 24 hr 09/05/16 09/05/16 09/06/16 17:29 20:40 05:31 WBC RBC Hgb Hct MCV MCHC RDW Plt Count MPV Neutrophils % Lymphocytes % Monocytes % Eosinophils % Basophils % Sodium Potassium Chloride Carbon Dioxide Anion Gap BUN Creatinine Creat Clearance w eGFR POC Glucometer 123 201 124 Random Glucose Calcium Magnesium Total Bilirubin AST ALT Alkaline Phosphatase Total Protein Albumin 09/06/16 09/06/16 09/06/16 09:25 09:25 12:26 WBC 5.2 RBC 3.96 L Hgb 12.0 Hct 35.3 L MCV 89.1 MCHC 33.9 RDW 12.8 Plt Count 146 D MPV 7.9 D Neutrophils % 64.7 D Lymphocytes % 15.1 D Monocytes % 19.2 H D Eosinophils % 0.4 D Basophils % 0.6 Sodium 140 Potassium 4.1 Chloride 106 Carbon Dioxide 26 Anion Gap 8 BUN 9 Creatinine 0.9 Creat Clearance w eGFR > 60 POC Glucometer 197 Random Glucose 160 H Calcium 8.0 L Magnesium 1.8 Total Bilirubin 0.4 AST 28 D ALT 42 Alkaline Phosphatase 59 Total Protein 5.5 L Albumin 2.5 L Active Medications Generic Name Dose Route Start Last Admin Trade Name Freq PRN Reason Stop Dose Admin Acetaminophen 650 mg 09/03/16 21:19 09/05/16 17:32 Tylenol - PO 650 mg Q4H PRN Administration FEVER OR PAIN Aspirin 81 mg 09/04/16 10:00 09/06/16 09:33 Asa - PO 81 mg DAILY SAAD Administration Docusate Sodium 300 mg 09/05/16 22:00 09/05/16 21:16 Colace - PO 300 mg HS SAAD Administration Enoxaparin Sodium 40 mg 09/04/16 10:00 09/06/16 09:34 Lovenox - SQ 40 mg DAILY SAAD Administration Meropenem 1 gm/ Dextrose 100 mls @ 200 mls/hr 09/03/16 22:15 09/06/16 09:34 IVPB 200 mls/hr Q8H-IV SAAD Administration Sodium Chloride 1,000 mls @ 100 mls/hr 09/05/16 20:40 09/06/16 01:53 Normal Saline - IV 100 mls/hr ASDIR SAAD Administration Insulin Aspart 1 vial 09/03/16 16:30 09/06/16 12:27 Novolog Vial Sliding Scale - SQ 2 unit ACHS SAAD Administration Protocol Polyethylene Glycol 17 gm 09/05/16 10:00 09/06/16 09:35 Miralax (For Daily Use) - PO Not Given BID SAAD ASSESSMENT/PLAN 56 year-old male with a PMH of HTN, NIDDM, and BPH, admitted for severe sepsis secondary to acute bacterial prostatitis s/p prostate biopsy x 2 days. Sepsis secondary to acute bacterial prostatitis E.coli bacteremia --still febrile, Tm 100.6, WBC wnl, hemodynamically stable --continue IV fluids --blood cultures grew E.coli, sensitive to meropenem (day #4) Hypertension --presently normotensive, continue to hold lisinopril NIDDM --Novolog sliding scale BPH --leave pat in place F/E/N Fluids: PO intake adequate Electrolytes: replete as indicated Nutrition: diabetic DVT prophylaxis: loveonox Dispo: continues to require inpatient care. Full Code. Visit type - Emergency Visit Emergency Visit: Yes ED Registration Date: 09/03/16 Care time: The patient presented to the Emergency Department on the above date and was hospitalized for further evaluation of their emergent condition. - New Patient This patient is new to me today: No - Critical Care Critical Care patient: No
--- NOTE | 2016-09-06 15:59 | PN ---
Progress Note, Physician History of Present Illness: patient doing well still spiking fevers clinically looking better urine clearing up - Current Medication List Current Medications: Active Medications Acetaminophen (Tylenol -) 650 mg PO Q4H PRN PRN Reason: FEVER OR PAIN Last Admin: 09/05/16 17:32 Dose: 650 mg Aspirin (Asa -) 81 mg PO DAILY [facility] Last Admin: 09/06/16 09:33 Dose: 81 mg Docusate Sodium (Colace -) 300 mg PO HS [facility] Last Admin: 09/05/16 21:16 Dose: 300 mg Enoxaparin Sodium (Lovenox -) 40 mg SQ DAILY [facility] Last Admin: 09/06/16 09:34 Dose: 40 mg Meropenem 1 gm/ Dextrose 100 mls @ 200 mls/hr IVPB Q8H-IV [facility] Last Admin: 09/06/16 09:34 Dose: 200 mls/hr Insulin Aspart (Novolog Vial Sliding Scale -) 1 vial SQ ACHS [facility] PRN Reason: Protocol Last Admin: 09/06/16 12:27 Dose: 2 unit Polyethylene Glycol (Miralax (For Daily Use) -) 17 gm PO BID [facility] Last Admin: 09/06/16 09:35 Dose: Not Given - Objective Vital Signs: Vital Signs Temperature 99.2 F 09/06/16 14:43 Pulse Rate 69 09/06/16 14:43 Respiratory Rate 16 09/06/16 14:43 Blood Pressure 134/80 09/06/16 14:43 O2 Sat by Pulse Oximetry (%) 97 09/06/16 09:00 Constitutional: Yes: No Distress, Calm, Other Cardiovascular: Yes: Regular Rate and Rhythm Respiratory: Yes: Regular, CTA Bilaterally Gastrointestinal: Yes: Normal Bowel Sounds, Soft Genitourinary: Yes: [place] Present Musculoskeletal: Yes: WNL Extremities: Yes: WNL Neurological: Yes: Alert, Oriented Psychiatric: Yes: Alert, Oriented Labs: CBC, BMP 09/06/16 09:25 09/06/16 09:25 INR, PTT INR 1.35 (0.82-1.09) H 09/03/16 11:54 - ....Imaging Cat Scan: Report Reviewed, Image Reviewed Assessment/Plan fever hematuria r/o pyelo sepsis plan continue meropenam hydration ct results noted continue close follow up continue monitoring fevers rest as per urology
--- NOTE | 2016-09-06 16:03 | PN ---
Progress Note, Physician History of Present Illness: patient much better flank pain resolving urine has cleared up discussed with him and his - Current Medication List Current Medications: Active Medications Acetaminophen (Tylenol -) 650 mg PO Q4H PRN PRN Reason: FEVER OR PAIN Last Admin: 09/05/16 17:32 Dose: 650 mg Aspirin (Asa -) 81 mg PO DAILY [facility] Last Admin: 09/06/16 09:33 Dose: 81 mg Docusate Sodium (Colace -) 300 mg PO HS SAAD Last Admin: 09/05/16 21:16 Dose: 300 mg Enoxaparin Sodium (Lovenox -) 40 mg SQ DAILY [facility] Last Admin: 09/06/16 09:34 Dose: 40 mg Meropenem 1 gm/ Dextrose 100 mls @ 200 mls/hr IVPB Q8H-IV [facility] Last Admin: 09/06/16 09:34 Dose: 200 mls/hr Insulin Aspart (Novolog Vial Sliding Scale -) 1 vial SQ ACHS SAAD PRN Reason: Protocol Last Admin: 09/06/16 12:27 Dose: 2 unit Polyethylene Glycol (Miralax (For Daily Use) -) 17 gm PO BID [facility]AD Last Admin: 09/06/16 09:35 Dose: Not Given - Objective Vital Signs: Vital Signs Temperature 99.2 F 09/06/16 14:43 Pulse Rate 69 09/06/16 14:43 Respiratory Rate 16 09/06/16 14:43 Blood Pressure 134/80 09/06/16 14:43 O2 Sat by Pulse Oximetry (%) 97 09/06/16 09:00 Constitutional: Yes: No Distress, Calm Cardiovascular: Yes: Regular Rate and Rhythm Respiratory: Yes: Regular, CTA Bilaterally Gastrointestinal: Yes: Normal Bowel Sounds, Soft Musculoskeletal: Yes: WNL Extremities: Yes: WNL Neurological: Yes: Alert, Oriented Psychiatric: Yes: Alert, Oriented Labs: CBC, BMP 09/06/16 09:25 09/06/16 09:25 INR, PTT INR 1.35 (0.82-1.09) H 09/03/16 11:54 Assessment/Plan fever hematuria r/o pyelo sepsis plan continue meropenam all cx results noted patient now afebrile by thursday should be able to switch to oral if patient does not spike any fevers repeat blood cx ordered
[2016-09-06] MEDS ORDERED: ACETAMINOPHEN 325 MG TABLET (FP) PO PRN (19:54)
[2016-09-06] MEDS: DOCUSATE SODIUM 100 MG CAPSULE (FP) PO SCH (22:37)
[2016-09-07] MEDS ORDERED: MEROPENEM 1 GM in DEXTROSE 5%-WATER - 100 ML IVPB SCH (02:00)
[2016-09-07] MEDS: MEROPENEM 1 GM in DEXTROSE 5%-WATER - 100 ML IVPB SCH ×4 (02:20→19:03)
[2016-09-07] MEDS: ENOXAPARIN NA (PORCINE) 40 MG/0.4 ML DISP.SYRIN SQ SCH (09:54)
[2016-09-07] MEDS: ASPIRIN 81 MG CHEWABLE TABLETS PO SCH (09:54)
[2016-09-07] MEDS: POLYETHYLENE GLYCOL 3350 119 GM BTL PO SCH ×2 (09:58→22:24)
--- NOTE | 2016-09-07 12:26 | PN ---
Progress Note, Physician History of Present Illness: patient much better no issues patient doing well - Current Medication List Current Medications: Active Medications Acetaminophen (Tylenol -) 650 mg PO Q4H PRN PRN Reason: FEVER OR PAIN Aspirin (Asa -) 81 mg PO DAILY [facility] Last Admin: 09/07/16 09:54 Dose: 81 mg Docusate Sodium (Colace -) 300 mg PO HS [facility] Last Admin: 09/06/16 22:37 Dose: 300 mg Enoxaparin Sodium (Lovenox -) 40 mg SQ DAILY [facility] Last Admin: 09/07/16 09:54 Dose: 40 mg Meropenem 1 gm/ Dextrose 100 mls @ 200 mls/hr IVPB Q8H-IV [facility] Last Admin: 09/07/16 02:20 Dose: 200 mls/hr Insulin Aspart (Novolog Vial Sliding Scale -) 1 vial SQ ACHS SAAD PRN Reason: Protocol Last Admin: 09/06/16 22:43 Dose: 2 units Polyethylene Glycol (Miralax (For Daily Use) -) 17 gm PO BID [facility] Last Admin: 09/07/16 09:58 Dose: Not Given - Objective Vital Signs: Vital Signs Temperature 98.5 F 09/06/16 20:02 Pulse Rate 85 09/06/16 20:02 Respiratory Rate 20 09/06/16 20:02 Blood Pressure 130/78 09/06/16 20:02 O2 Sat by Pulse Oximetry (%) 97 09/06/16 21:00 Constitutional: Yes: No Distress, Calm Cardiovascular: Yes: Regular Rate and Rhythm Respiratory: Yes: Regular, CTA Bilaterally Gastrointestinal: Yes: Normal Bowel Sounds, Soft Musculoskeletal: Yes: WNL Extremities: Yes: WNL Neurological: Yes: Alert, Oriented Psychiatric: Yes: Alert Labs: CBC, BMP 09/06/16 09:25 09/06/16 09:25 INR, PTT INR 1.35 (0.82-1.09) H 09/03/16 11:54 Assessment/Plan fever hematuria r/o pyelo sepsis plan continue meropenam all cx results noted will switch to oral on thursday
[2016-09-07] MEDS: INSULIN SLIDING SCALE (NOVOLOG) 1 VIAL SQ SCH ×4 (12:53→22:22)
--- NOTE | 2016-09-07 17:34 | PN ---
Physical Exam: SUBJECTIVE: Patient seen and examined at bedside. OBJECTIVE: Vital Signs Period Temp Pulse Resp BP Sys/Grayson Pulse Ox Last 24 Hr 98.1 F-98.7 F 68-85 18-20 130-134/74-78 97 GENERAL: The patient is awake, alert, and fully oriented, in no acute distress. HEAD: Normal with no signs of trauma. EYES: PERRL, extraocular movements intact, sclera anicteric, conjunctiva clear. No ptosis. ENT: moist mucous membranes. NECK: Trachea midline, full range of motion, supple. LUNGS: Breath sounds equal, clear to auscultation bilaterally, no wheezes, no crackles, no accessory muscle use. HEART: Regular rate and rhythm, S1, S2 without murmur, rub or gallop. ABDOMEN: Soft, nontender, nondistended, normoactive bowel sounds, no guarding, no rebound, no hepatosplenomegaly, no masses. : Pat draining pale yellow urine. EXTREMITIES: 2+ pulses, warm, well-perfused, no edema. NEUROLOGICAL: Cranial nerves II through XII grossly intact. Normal speech, gait not observed. CBCD WBC 5.2 K/mm3 (4.0-10.0) 09/06/16 09:25 RBC 3.96 M/mm3 (4.00-5.60) L 09/06/16 09:25 Hgb 12.0 GM/dL (11.7-16.9) 09/06/16 09:25 Hct 35.3 % (35.4-49) L 09/06/16 09:25 MCV 89.1 fl (80-96) 09/06/16 09:25 MCHC 33.9 g/dl (32.0-35.9) 09/06/16 09:25 RDW 12.8 % (11.9-15.9) 09/06/16 09:25 Plt Count 146 K/MM3 (134-434) D 09/06/16 09:25 MPV 7.9 fl (7.5-11.1) D 09/06/16 09:25 CMP Sodium 140 mmol/L (136-145) 09/06/16 09:25 Potassium 4.1 mmol/L (3.5-5.1) 09/06/16 09:25 Chloride 106 mmol/L (98-107) 09/06/16 09:25 Carbon Dioxide 26 mmol/L (21-32) 09/06/16 09:25 Anion Gap 8 (8-16) 09/06/16 09:25 BUN 9 mg/dL (7-18) 09/06/16 09:25 Creatinine 0.9 mg/dL (0.7-1.3) 09/06/16 09:25 Creat Clearance w eGFR > 60 (>60) 09/06/16 09:25 Calcium 8.0 mg/dL (8.5-10.1) L 09/06/16 09:25 Total Bilirubin 0.4 mg/dL (0.2-1.0) 09/06/16 09:25 AST 28 U/L (15-37) D 09/06/16 09:25 ALT 42 U/L (12-78) 09/06/16 09:25 Alkaline Phosphatase 59 U/L (45-117) 09/06/16 09:25 Total Protein 5.5 g/dl (6.4-8.2) L 09/06/16 09:25 Albumin 2.5 g/dl (3.4-5.0) L 09/06/16 09:25 Active Medications Generic Name Dose Route Start Last Admin Trade Name Freq PRN Reason Stop Dose Admin Acetaminophen 650 mg 09/06/16 19:54 Tylenol - PO Q4H PRN FEVER OR PAIN Aspirin 81 mg 09/07/16 10:00 09/07/16 09:54 Asa - PO 81 mg DAILY SAAD Administration Docusate Sodium 300 mg 09/06/16 22:00 09/06/16 22:37 Colace - PO 300 mg HS SAAD Administration Enoxaparin Sodium 40 mg 09/07/16 10:00 09/07/16 09:54 Lovenox - SQ 40 mg DAILY SAAD Administration Meropenem 1 gm/ Dextrose 100 mls @ 200 mls/hr 09/03/16 22:15 09/07/16 13:55 IVPB 200 mls/hr Q8H-IV SAAD Administration Insulin Aspart 1 vial 09/06/16 22:00 09/07/16 17:08 Novolog Vial Sliding Scale - SQ 2 units ACHS SAAD Administration Protocol Polyethylene Glycol 17 gm 09/06/16 22:00 09/07/16 09:58 Miralax (For Daily Use) - PO Not Given BID SAAD ASSESSMENT/PLAN 56 year-old male with a PMH of HTN, NIDDM, and BPH, admitted for severe sepsis secondary to acute bacterial prostatitis s/p prostate biopsy. Sepsis secondary to acute bacterial prostatitis E.coli bacteremia --afebrile >24 hours, WBC wnl --continue meropenem (day #5) Hypertension --restart lisinopril NIDDM --Novolog sliding scale BPH --d/c pat in am F/E/N Fluids: PO intake adequate Electrolytes: replete as indicated Nutrition: diabetic DVT prophylaxis: loveonox Dispo: continues to require inpatient care. Full Code. Visit type - Emergency Visit Emergency Visit: Yes ED Registration Date: 09/03/16 Care time: The patient presented to the Emergency Department on the above date and was hospitalized for further evaluation of their emergent condition. - New Patient This patient is new to me today: No - Critical Care Critical Care patient: No
[2016-09-07] MEDS: DOCUSATE SODIUM 100 MG CAPSULE (FP) PO SCH (22:22)
[2016-09-08] MEDS ORDERED: PT OWN MED DRAWER 7, Y5N ONE ×2 (01:46→10:33)
[2016-09-08] MEDS: MEROPENEM 1 GM in DEXTROSE 5%-WATER - 100 ML IVPB SCH ×2 (02:01→10:34)
[2016-09-08] MEDS: INSULIN SLIDING SCALE (NOVOLOG) 1 VIAL SQ SCH ×3 (06:09→18:32)
[2016-09-08 08:23] LABS: BASOPHIL 0.7 % (0-2.0); EOSINOPHIL 4.9 % (0-4.5); MCH 30.3 pg (25.7-33.7); MCHC 34.4 g/dl (32.0-35.9); MEAN CELL VOLUME 88.1 fl (80-96); MEAN PLT VOLUME 7.9 fl (7.5-11.1); NEUTROPHILS 56.3 % (42.8-82.8); PLATELET COUNT 182 K/MM3 (134-434); RDW 12.7 % (11.9-15.9); WHITE BLOOD COUNT 4.9 K/mm3 (4.0-10.0)
[2016-09-08 08:56] LABS: ALBUMIN 2.7 g/dl (3.4-5.0); ALK PHOS 71 U/L (45-117); ANION GAP 6 (8-16); BILIRUBIN,TOTAL 0.5 mg/dL (0.2-1.0); CALCIUM 9.1 mg/dL (8.5-10.1); CO2 32 mmol/L (21-32); COCKROFT - GAULT 94.31; CREATININE 0.8 mg/dL (0.7-1.3); GLUCOSE,RANDOM 138 mg/dL (74-106); MAGNESIUM 2.1 mg/dL (1.8-2.4); SGOT/AST 42 U/L (15-37); SGPT/ALT 59 U/L (12-78)
[2016-09-08] MEDS ORDERED: LISINOPRIL 20 MG TABLET (FP) PO SCH (10:00)
[2016-09-08] MEDS: ASPIRIN 81 MG CHEWABLE TABLETS PO SCH (10:28)
[2016-09-08] MEDS: ENOXAPARIN NA (PORCINE) 40 MG/0.4 ML DISP.SYRIN SQ SCH (10:28)
[2016-09-08] MEDS: POLYETHYLENE GLYCOL 3350 119 GM BTL PO SCH (10:29)
--- NOTE | 2016-09-08 14:30 | PN ---
Progress Note, Physician History of Present Illness: patient much better no issues patient doing well - Current Medication List Current Medications: Active Medications Acetaminophen (Tylenol -) 650 mg PO Q4H PRN PRN Reason: FEVER OR PAIN Aspirin (Asa -) 81 mg PO DAILY [facility] Last Admin: 09/08/16 10:28 Dose: 81 mg Docusate Sodium (Colace -) 300 mg PO HS [facility] Last Admin: 09/07/16 22:22 Dose: 300 mg Enoxaparin Sodium (Lovenox -) 40 mg SQ DAILY [facility] Last Admin: 09/08/16 10:28 Dose: 40 mg Meropenem 1 gm/ Dextrose 100 mls @ 200 mls/hr IVPB Q8H-IV [facility] Last Admin: 09/08/16 10:34 Dose: 200 mls/hr Insulin Aspart (Novolog Vial Sliding Scale -) 1 vial SQ ACHS SAAD PRN Reason: Protocol Last Admin: 09/08/16 11:36 Dose: 4 units Lisinopril (Prinivil) 20 mg PO DAILY [facility] Last Admin: 09/08/16 10:28 Dose: 20 mg Polyethylene Glycol (Miralax (For Daily Use) -) 17 gm PO BID [facility] Last Admin: 09/08/16 10:29 Dose: 17 grams - Objective Vital Signs: Vital Signs Temperature 98.0 F 09/08/16 08:07 Pulse Rate 66 09/08/16 08:07 Respiratory Rate 17 09/08/16 08:07 Blood Pressure 137/76 09/08/16 08:07 O2 Sat by Pulse Oximetry (%) 95 09/08/16 09:00 Constitutional: Yes: No Distress, Calm Cardiovascular: Yes: Regular Rate and Rhythm Respiratory: Yes: Regular, CTA Bilaterally Gastrointestinal: Yes: Normal Bowel Sounds, Soft Musculoskeletal: Yes: WNL Extremities: Yes: WNL Neurological: Yes: Alert, Oriented Psychiatric: Yes: Alert Labs: CBC, BMP 09/08/16 07:15 09/08/16 07:15 INR, PTT INR 1.35 (0.82-1.09) H 09/03/16 11:54 Assessment/Plan fever hematuria r/o pyelo sepsis plan change cipro to 500 mg bid for another 12 days monitor for fevers
[2016-09-08 15:40] VITALS: BP 132/80; PULSE 64; TEMP 97.3
--- NOTE | 2016-09-08 19:54 | DS ---
Physical Exam: SUBJECTIVE: Patient seen and examined OBJECTIVE: Vital Signs Period Temp Pulse Resp BP Sys/Grayson Pulse Ox Last 24 Hr 97.3 F-98.6 F 64-71 16-18 132-140/76-80 95-95 PHYSICAL EXAM GENERAL: The patient is awake, alert, and fully oriented, in no acute distress. HEAD: Normal with no signs of trauma. EYES: PERRL, extraocular movements intact, sclera anicteric, conjunctiva clear. ENT: Ears normal, nares patent, oropharynx clear without exudates, moist mucous membranes. NECK: Trachea midline, full range of motion, supple. LUNGS: Breath sounds equal, clear to auscultation bilaterally, no wheezes, no crackles, no accessory muscle use. HEART: Regular rate and rhythm, S1, S2 without murmur, rub or gallop. ABDOMEN: Soft, nontender, nondistended, normoactive bowel sounds, no guarding, no rebound, no hepatosplenomegaly, no masses. EXTREMITIES: 2+ pulses, warm, well-perfused, no edema. NEUROLOGICAL: Cranial nerves II through XII grossly intact. Normal speech, gait not observed. PSYCH: Normal mood, normal affect. SKIN: Warm, dry, normal turgor, no rashes or lesions noted. LABS Laboratory Results - last 24 hr 09/07/16 09/08/16 09/08/16 22:21 06:06 07:15 WBC 4.9 RBC 4.17 Hgb 12.6 Hct 36.7 MCV 88.1 MCHC 34.4 RDW 12.7 Plt Count 182 D MPV 7.9 Neutrophils % 56.3 Lymphocytes % 25.2 D Monocytes % 12.9 H Eosinophils % 4.9 H D Basophils % 0.7 Sodium Potassium Chloride Carbon Dioxide Anion Gap BUN Creatinine Creat Clearance w eGFR POC Glucometer 211 123 Random Glucose Calcium Magnesium Total Bilirubin AST ALT Alkaline Phosphatase Total Protein Albumin 09/08/16 09/08/16 07:15 11:35 WBC RBC Hgb Hct MCV MCHC RDW Plt Count MPV Neutrophils % Lymphocytes % Monocytes % Eosinophils % Basophils % Sodium 142 Potassium 4.5 Chloride 104 Carbon Dioxide 32 D Anion Gap 6 L BUN 12 D Creatinine 0.8 Creat Clearance w eGFR > 60 POC Glucometer 234 Random Glucose 138 H Calcium 9.1 Magnesium 2.1 Total Bilirubin 0.5 D AST 42 H D ALT 59 D Alkaline Phosphatase 71 D Total Protein 6.0 L Albumin 2.7 L HOSPITAL COURSE: Date of Admission:09/03/16 Date of Discharge: 09/08/16 Discharge Summary Reason For Visit: SEPSIS - Instructions Diet, Activity, Other Instructions: A prescription has been sent to your pharmacy for an antibiotic. Take this medication as directed and be sure to FINISH all the medication. Follow up with Dr. Westfall or someone from his office within 2-3 days of your discharge. Return to the emergency department for any new or worsening symptoms. Referrals: Shelli Ortiz MD [Primary Care Provider] - Amaury Westfall MD [Non Staff, Medical] - 1 Week Disposition: HOME - Home Medications Comprehensive Discharge Medication List: Ambulatory Orders Aspirin [ASA -] 81 mg PO DAILY 09/03/16 Glimepiride [Amaryl -] 4 mg PO DAILY@0700 09/03/16 Lisinopril [Prinivil] 20 mg PO DAILY 09/03/16 Ciprofloxacin HCl [Cipro] 500 mg PO BID #24 tablet 09/08/16
== END 2016-09-08 16:31 | disposition home or self-care (01) | DRG 721 ==
LOC: JER 11:20 → JERBED 16:55 → J7W 20:30 → J4S 23:26 → J5S 09-06 19:45
PROVIDERS: ADMIT Internal Medicine; ATTEND Nurse Practitioner Acute Care
DX: T81.4XXA Infection following a procedure, initial encounter (principal); N99.89 Other postprocedural complications and disorders of genitourinary system; I10 Essential (primary) hypertension; E11.9 Type 2 diabetes mellitus without complications; N40.0 Benign prostatic hyperplasia without lower urinary tract symptoms; N10 Acute pyelonephritis; R65.20 Severe sepsis without septic shock; N41.0 Acute prostatitis; B96.20 Unspecified Escherichia coli [E. coli] as the cause of diseases classified elsewhere; R31.9 Hematuria, unspecified; Y84.8 Other medical procedures as the cause of abnormal reaction of the patient, or of later complication, without mention of misadventure at the time of the procedure; Y83.8 Other surgical procedures as the cause of abnormal reaction of the patient, or of later complication, without mention of misadventure at the time of the procedure
CPT/HCPCS: 36415; 71010-TC; 74177-TC; 80048; 80053; 81003; 81015; 82550; 82803; 83605; 83735; 84484; 85025; 85027; 85610; 85730; 86850; 86900; 86901; 87040; 87086; 87186; 93005; 93010; 99285-25

== ENCOUNTER 2021-01-22 17:12 | Emergency (ER) | payer OTHER ==
[2021-01-22 17:52] VITALS: BMI 23.1
[2021-01-22 19:34] LABS: EPI CELLS 8 /uL (0-25.1); HYALINE CASTS 1 /uL (0-3.1); URINE APPEARANCE CLEAR; URINE BACTERIA 1 /uL (0-1359); URINE BILIRUBIN NEGATIVE (NEGATIVE); URINE COLOR YELLOW; URINE GLUCOSE (UA) 2+ (NEGATIVE); URINE KETONE TRACE (NEGATIVE); URINE LEUK ESTERASE TRACE (NEGATIVE); URINE NITRITE NEGATIVE (NEGATIVE); URINE PROTEIN 2+ (NEGATIVE); URINE RBC 21 /uL (0-23.9); URINE UROBILINOGEN 0.2 mg/dL (0.2-1.0); URINE WBC 86 /uL (0-25.8)
[2021-01-22] MEDS ORDERED: LIDOCAINE HCL 2% JELLY 10 ML CARTRIDGE UR ONE (20:51)
[2021-01-22] MEDS ORDERED: CIPROFLOXACIN 500 MG TABLET (RESTRICTED TO ID) PO ONE (20:52)
[2021-01-22] MEDS ORDERED: TAMSULOSIN HCL 0.4 MG CAP PO ONE (20:52)
[2021-01-22] MEDS ORDERED: TAMSULOSIN HCL 0.4 MG CAP ONE (20:56)
[2021-01-22] MEDS ORDERED: LIDOCAINE HCL 2% JELLY 10 ML CARTRIDGE ONE (20:56)
[2021-01-22] MEDS ORDERED: ACETAMINOPHEN 325 MG TABLET (FP) PO ONE (20:57)
[2021-01-22] MEDS ORDERED: ACETAMINOPHEN 325 MG TABLET (FP) ONE (20:58)
[2021-01-22 21:59] VITALS: BP 106/62; PULSE 83
[2021-01-22 22:01] VITALS: TEMP 100.1
== END 2021-01-22 22:03 | disposition home or self-care (01) ==
LOC: JER 17:12
DX: N48.29 Other inflammatory disorders of penis (principal)
CPT/HCPCS: 81003; 87086; 99283-25

== ENCOUNTER 2024-10-19 04:50 | Emergency (ER) | payer OTHER ==
[2024-10-19 04:56] VITALS: BP 151/87; PULSE 104; RESP 16; TEMP 98; BMI 21.6
[2024-10-19] MEDS ORDERED: KETOROLAC TROMETHAMINE 30 MG/1 ML VIAL ONE (05:20)
[2024-10-19] MEDS ORDERED: LIDOCAINE 4% PATCH TP ONE (05:20)
[2024-10-19] MEDS ORDERED: METHOCARBAMOL 500 MG TABLET ONE (05:20)
[2024-10-19] MEDS: METHOCARBAMOL 500 MG TABLET PO ONE (05:28)
[2024-10-19] MEDS: LIDOCAINE 4% PATCH TP ONE (05:28)
[2024-10-19] MEDS: KETOROLAC TROMETHAMINE 30 MG/1 ML VIAL IM ONE (05:29)
[2024-10-19] MEDS ORDERED: LIDOCAINE PATCH REMOVAL MC ONE (17:00)
== END 2024-10-19 06:14 | disposition left against medical advice (07) ==
LOC: JER 04:50
PROC: 3E0233Z Introduction of Anti-inflammatory into Muscle, Percutaneous Approach (ICD-10-PCS; principal; 2024-10-19)
DX: M54.50 Low back pain, unspecified (principal); X50.0XXA Overexertion from strenuous movement or load, initial encounter
CPT/HCPCS: 99284-25